=== PATIENT | female | born 1970 | race Caucasian/White ===

== ENCOUNTER 2017-12-09 17:39 | Inpatient (IN) | payer OTHER ==
[~2017-12-09] VITALS: Ht 149.9 cm; Wt 48.5 kg
== END 2017-12-11 13:29 | disposition home or self-care (01) | DRG 761 ==
LOC: ER 17:39 → SEC-K 12-10 10:56 → MEDJ 12-10 10:56
PROC: 30233N1 Transfusion of Nonautologous Red Blood Cells into Peripheral Vein, Percutaneous Approach (ICD-10-PCS; principal; 2017-12-10)
DX: N92.1 Excessive and frequent menstruation with irregular cycle (principal); D50.0 Iron deficiency anemia secondary to blood loss (chronic)